=== PATIENT | female | born 1940 | race Caucasian/White ===

== ENCOUNTER → 2018-11-09 | Outpatient (REF) | payer MEDICARE | END | disposition home or self-care (01) | LOC: STRESS 11:20 → NUCMED 12:00 | PROVIDERS: ATTEND Internal Medicine | DX: I25.10 Atherosclerotic heart disease of native coronary artery without angina pectoris (principal); Z95.1 Presence of aortocoronary bypass graft; I20.9 Angina pectoris, unspecified; R06.02 Shortness of breath; I25.9 Chronic ischemic heart disease, unspecified | CPT/HCPCS: A9502; J2785 ==